=== PATIENT | female | born 1965 | race American Indian/Alaskan Native ===

== ENCOUNTER 2020-12-04 07:05 | Day surgery (SDC) | payer OTHER ==
[~2020-12-04 07:05] MED LIST: SODIUM CHLORIDE 0.9% 1000 ML 1,000 ML IV SCH
--- NOTE | 2020-12-04 07:38 | Anesthesia Consultation ---
Anesthesia Consult and Med Hx Date of service: 12/04/20 - Airway Anesthetic Teeth Evaluation: Good ROM Head & Neck: Adequate Mental/Hyoid Distance: Adequate Mallampati Class: Class II Intubation Access Assessment: Probably Good - Pre-Operative Health Status ASA Pre-Surgery Classification: ASA2 Proposed Anesthetic Plan: MAC - Pulmonary Hx Asthma: Yes (seasonal) - Cardiovascular System Hx Hypertension: Yes (no meds) - Other Systems Hx Obesity: Yes (s/p gastric sleeve)
--- NOTE | 2020-12-04 07:39 | Anesthesia Day of Surgery ---
Anesthesia Day of Surgery - Day of Surgery Patient Examined: Yes Patient H&P Reviewed: Yes Patient is NPO: Yes
[2020-12-04] MEDS ORDERED: LIDOCAINE MPF (2%) 20 MG/1 ML VIAL 5 ML ONE (09:18)
[2020-12-04] MEDS ORDERED: propofoL 200 MG/20 ML VIAL IV ONE ×2 (09:18→09:27)
--- NOTE | 2020-12-04 09:50 | Procedure Note ---
Date of procedure: 12/04/20 Pre-op diagnosis: Colon Polyp Screening/ No F/H/O Cancer Post-op diagnosis: other (No Colon Polyps noted/ No Diverticular Disease noted/ Normal Ileal Mucosa/ Minor,Internal Hemorrhoid/ Melanosis Coli) Procedure: Colonoscopy Anesthesia: MAC Surgeon: TREY DESAI Estimated blood loss: none Pathology: none Condition: stable Disposition: same day (Resume home medication and follow up in 1 to 2 weeks ([phone]).)
--- NOTE | 2020-12-04 10:01 | Operative Report ---
INDICATIONS: This is a 55-year-old -[place] female who has no family history of cancer, has a prior history of a gastric sleeve done about 2 years ago. At present, she is having a colonoscopy done as part of colon polyp screening because of her age. DESCRIPTION OF PROCEDURE: The procedure was done after getting informed consent with MAC anesthesia. Initial rectal exam is unremarkable. Instrument was passed through the rectum onto the cecum, which was identified with the ileocecal valve and the appendiceal orifice. Visualization was fair to good. The terminal ileum was intubated, showed normal mucosa. The cecum was examined on the retroverted view. No additional pathology was noted. 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 The cecum, ascending colon, transverse colon, descending colon, and sigmoid showed normal mucosa. The rectum showed some minor internal hemorrhoid on the retroverted view. Initially in the rectum, there appeared to be a polyp, which however flattened out. The impression of a polyp may have been there because of the melanosis coli that no polyps were noted. None were removed. There was no bleeding associated with the procedure. No complications associated with the procedure. ASSESSMENT: Colon polyp screening, no colon polyps noted, melanosis coli and minor internal hemorrhoid. Normal ileal mucosa. No diverticular disease noted. PLAN: To have the patient resume home medications and follow up in the office in 1-2 weeks' time. The procedure was done in the GI lab with assistance of the GI lab team, which included Yahaira GARZA and Kameron delaney and with assistance of anesthesia. [facility]# [id number] NAVID/SLIM
--- NOTE | 2020-12-04 10:28 | Post Anesthesia Evaluation ---
- Post Anesthesia Evaluation Patient Participated: Yes Airway Patent: Yes Stable Respiratory Function: Yes Nausea/Vomiting: No Temp > 96.8F: Yes Pain Manageable: Yes Adequeate Hydration: Yes Anesthesia Complications: No Block Receding Appropriately: Not Applicable Patient on Ventilator: No
[2020-12-04 10:56] VITALS: BP 107/80
== END 2020-12-04 07:06 | disposition home or self-care (01) ==
LOC: GIO 07:05
DX: Z12.11 Encounter for screening for malignant neoplasm of colon (principal); K64.8 Other hemorrhoids; K63.89 Other specified diseases of intestine; I10 Essential (primary) hypertension; J45.909 Unspecified asthma, uncomplicated; E66.9 Obesity, unspecified; Z68.32 Body mass index [BMI] 32.0-32.9, adult; Z98.890 Other specified postprocedural states
CPT/HCPCS: 45378; J2704; J7030